=== PATIENT | female | born 1950 | race Caucasian/White ===

== ENCOUNTER 2019-03-12 12:57 | Outpatient (CLI) | payer MEDICARE ==
[2019-03-12] MEDS ORDERED: BUSP10TA PO (13:34)
[2019-03-12] MEDS ORDERED: CYCL-259 PO (13:34)
[2019-03-12] MEDS ORDERED: ROPI1TAB4 PO (13:34)
[2019-03-12] MEDS ORDERED: TRAM50TA2 PO (13:34)
[2019-03-12] MEDS ORDERED: TAMO20TA PO (13:34)
[2019-03-12 13:51] LABS: BASOPHILS # (AUTO) 0.02 x10^3/uL (0-0.1); BASOPHILS % (AUTO) 0 % (0-1); EOSINOPHILS # (AUTO) 0.07 x10^3/uL (0-0.4); EOSINOPHILS % (AUTO) 1 % (1-7); LYMPHOCYTES % (AUTO) 13 % (22-44); MD NO; MEAN CORPUSCULAR HEMOGLOBIN 29.6 pg (27.0-34.8); MEAN CORPUSCULAR HGB CONC 32.6 g/dL (32.4-35.8); MEAN CORPUSCULAR VOLUME 90.6 fL (80-100); MEAN PLATELET VOLUME 7.8 fL (7.4-10.4); MONOCYTES # (AUTO) 0.16 x10^3/uL (0.2-0.8); MONOCYTES % (AUTO) 3 % (2-9); NEUTROPHILS # (AUTO) 4.46 x10^3/uL (1.8-6.8); NEUTROPHILS % (AUTO) 83 % (42-75); PLATELET COUNT 219 x10^3/uL (130-400); RED BLOOD COUNT 5.08 x10^6/uL (3.82-5.3); RED CELL DISTRIBUTION WIDTH 15.3 % (9.6-15.2)
[2019-03-12 13:58] LABS: INTERNATIONAL NORMALIZED RATIO 1.05 (0.93-1.1); PROTHROMBIN TIME 11.1 Seconds (9.6-11.5)
[2019-03-12 14:00] LABS: ANION GAP 6 mmol/L (5-15); CALCIUM 9.7 mg/dL (8.5-10.1); CHLORIDE 105 mmol/L (98-107); CREATININE 0.74 mg/dL (0.55-1.02)
[2019-03-12] MEDS ORDERED: OMEP40CA42 PO (14:07)
[2019-03-12] MEDS ORDERED: BUSP7.5T3 PO (14:07)
[2019-03-12] MEDS ORDERED: VENL75TA2 PO (14:07)
[2019-03-12] MEDS ORDERED: IBUP-1221 PO (14:07)
[2019-03-12] MEDS ORDERED: HYDR-3245 PO (14:07)
[2019-03-12] MEDS ORDERED: LOVA20TA2 PO (14:07)
[2019-03-12] MEDS ORDERED: GUAI400T80 PO (14:07)
[2019-03-12] MEDS ORDERED: [UNRECOGNIZED DRUG - CODE] PO (14:07)
== END 2019-03-12 23:59 | disposition home or self-care (01) ==
LOC: STAR 12:57
PROVIDERS: ATTEND Orthopaedic Surgery
DX: Z01.818 Encounter for other preprocedural examination (principal); M17.11 Unilateral primary osteoarthritis, right knee
CPT/HCPCS: 36415; 80048; 83036; 85025; 85610; 85730; 87081; 87147; 93005

== ENCOUNTER 2019-03-20 08:26 | Observation (INO) | payer MEDICARE ==
[~2019-03-20] VITALS: Ht 165.1 cm; Wt 98.7 kg
[~2019-03-20 08:26] MED LIST: ACETAMINOPHEN 650 MG/20.3 ML UDC PO PRN; BISACODYL 10 MG SUPP PR PRN; BUSP10TA PO; BUSP7.5T3 PO; CYCL-259 PO; DIPHENHYDRAMINE 25 MG CAPSULE PO PRN; EPINEPHRINE 1 MG/ML, 1ML ONE; GUAI400T80 PO; GUAIFENESIN 200 MG TABLET PO PRN; HYDR-3245 PO; HYDROcodone/APAP 5/325 TABLET PO PRN; HYDROmorphone 1 MG/ML, 1ML INJ IV PRN; IBUP-1221 PO; KETOROLAC 60 MG/2 ML ONE; LOVA20TA2 PO; MAGNESIUM HYDROXIDE 8%, 30ML UDC PO PRN; OMEP40CA42 PO; ONDANSETRON 2MG/ML, 2ML IV PRN; ONDANSETRON 4 MG TABLET PO PRN; ROPI1TAB2 PO; ROPIvacaine/PF 0.5%, 20 ML ONE; ROPIvacaine/PF 0.5%, 30 ML ONE; SCOPOLAMINE PATCH, 1.5MG PATCH.TD72 TD ONE; SENNA/DOCUSATE TABLET PO PRN; SODIUM CHLORIDE 0.9% 50 ML ONE; TAMO20TA PO; TRAM50TA2 PO; TRANEXAMIC ACID 100 MG/ML, 10ML ONE; VANCOMYCIN 1,000 MG ONE; VENL75TA2 PO; ZOLPIDEM 5MG TABLET PO PRN; [UNRECOGNIZED DRUG - CODE] PO
[2019-03-20] MEDS ORDERED: MIDAZOLAM 1 MG/ML, 2ML ONE (08:44)
[2019-03-20] MEDS ORDERED: FENTANYL PF 250 MCG/5ML ONE ×2 (08:45→10:22)
[2019-03-20] MEDS ORDERED: ROCURONIUM 10MG/ML,5ML ONE (08:49)
[2019-03-20] MEDS ORDERED: CEFAZOLIN 1,000 MG ONE (08:49)
[2019-03-20] MEDS ORDERED: DEXAMETHASONE 4 MG/ML, 1ML ONE (08:49)
[2019-03-20] MEDS ORDERED: ONDANSETRON 2MG/ML, 2ML ONE (08:49)
[2019-03-20] MEDS ORDERED: NEOSTIGMINE 1 MG/ML, 10ML ONE (08:49)
[2019-03-20] MEDS ORDERED: GLYCOPYRROLATE 0.2MG/1ML, 5ML ONE (08:49)
[2019-03-20] MEDS ORDERED: ROPIvacaine/PF 0.2%, 20 ML ONE (08:49)
[2019-03-20] MEDS ORDERED: PROPOFOL 10 MG/ML, 20ML ONE (08:49)
[2019-03-20 08:58] VITALS: BP 137/91
[2019-03-20] MEDS ORDERED: LACTATED RINGERS 1,000 ML IV SCH (09:07)
[2019-03-20] MEDS ORDERED: ACETAMINOPHEN 500 MG TABLET PO ONE (09:30)
[2019-03-20] MEDS ORDERED: ACETAMINOPHEN 500 MG TABLET ONE (09:43)
[2019-03-20] MEDS ORDERED: MORPHINE SULFATE 4 MG/ML, 1ML IVPush PRN (10:30)
[2019-03-20] MEDS ORDERED: HYDROmorphone 2 MG/ML, 1ML IVPush PRN (10:30)
[2019-03-20] MEDS ORDERED: hydrALAzine 20 MG/ML, 1ML IV PRN (10:30)
[2019-03-20] MEDS ORDERED: MEPERIDINE/PF 25MG/ML,1ML IVPush PRN (10:30)
[2019-03-20] MEDS ORDERED: LABETALOL 5MG/ML, 20ML IV PRN (10:30)
[2019-03-20] MEDS ORDERED: OXYcodone 5 MG/5 ML ORAL.SOL UDC PO PRN (10:30)
[2019-03-20] MEDS ORDERED: PROMETHAZINE 25 MG/ML, 1ML IV PRN (10:30)
[2019-03-20] MEDS ORDERED: HALOPERIDOL 5 MG/ML IV PRN (10:30)
[2019-03-20] MEDS ORDERED: FENTANYL PF 100 MCG/2ML ONE (11:23)
[2019-03-20] MEDS ORDERED: OXYcodone 5 MG/5 ML ORAL.SOL UDC ONE (11:24)
[2019-03-20] MEDS: FENTANYL PF 100 MCG/2ML IV PRN ×2 (11:24→11:34)
[2019-03-20] MEDS: OMEPRAZOLE 20 MG CAPSULE.DR PO SCH (13:32)
[2019-03-20] MEDS: NS + 20MEQ KCL 1,000 ML IV SCH ×2 (13:32→23:55)
[2019-03-20] MEDS: BUSPIRONE 5 MG TABLET PO SCH ×2 (13:32→20:54)
[2019-03-20] MEDS: DOCUSATE 100 MG CAPSULE PO SCH ×2 (13:33→20:54)
[2019-03-20] MEDS: ROPINIROLE 1MG TABLET PO SCH ×2 (13:34→20:54)
[2019-03-20] MEDS: CYCLOBENZAPRINE 10 MG TABLET PO SCH ×3 (13:34→23:50)
[2019-03-20 14:00] VITALS: BP 121/66
[2019-03-20] MEDS: CEFAZOLIN PMX 2GM/50ML 50 ML IVPB SCH (17:48)
[2019-03-20] MEDS: ASPIRIN 81 MG TABLET EC PO SCH (17:48)
[2019-03-20 20:16] VITALS: BP 87/53
[2019-03-20] MEDS: OXYcodone IR 5MG TABLET PO PRN (20:54)
[2019-03-20] MEDS ORDERED: VENLAFAXINE 75 MG CAP ER PO SCH (21:00)
[2019-03-20] MEDS ORDERED: LOVASTATIN 20 MG TABLET PO SCH (21:00)
[2019-03-20 22:53] VITALS: BP 94/55
[2019-03-21 00:31] VITALS: BP 95/76
[2019-03-21] MEDS: CEFAZOLIN PMX 2GM/50ML 50 ML IVPB SCH (01:58)
[2019-03-21 04:01] VITALS: BP 114/64
[2019-03-21] MEDS: ASPIRIN 81 MG TABLET EC PO SCH (05:59)
[2019-03-21] MEDS ORDERED: DEXAMETHASONE 4 MG/ML, 1ML IVPush SCH (06:00)
[2019-03-21] MEDS: OXYcodone IR 5MG TABLET PO PRN ×2 (06:04→10:22)
[2019-03-21 07:02] VITALS: BP 107/74
[2019-03-21] MEDS: ROPINIROLE 1MG TABLET PO SCH (08:40)
[2019-03-21] MEDS: DOCUSATE 100 MG CAPSULE PO SCH (08:40)
[2019-03-21] MEDS: CYCLOBENZAPRINE 10 MG TABLET PO SCH (08:40)
[2019-03-21] MEDS: BUSPIRONE 5 MG TABLET PO SCH (08:40)
[2019-03-21] MEDS: OMEPRAZOLE 20 MG CAPSULE.DR PO SCH (08:41)
[2019-03-21] MEDS ORDERED: OXYC5CAP2 PO (08:56)
[2019-03-21] MEDS ORDERED: TRAM50TA2 PO (08:57)
[2019-03-21] MEDS ORDERED: MELO7.5T31 PO (08:57)
[2019-03-21] MEDS ORDERED: ASPI81TA45 PO (09:02)
== END 2019-03-21 13:31 | disposition home or self-care (01) ==
LOC: OUT 08:26 → 3WST 12:23 → 4NE 03-21 00:01 → OUT 03-21 00:23 → 4NE 03-21 00:24 → DCLOUNGE 03-21 13:19
PROVIDERS: ADMIT Orthopaedic Surgery; ATTEND Orthopaedic Surgery
DX: M17.11 Unilateral primary osteoarthritis, right knee (principal); I25.10 Atherosclerotic heart disease of native coronary artery without angina pectoris; I25.2 Old myocardial infarction; E78.5 Hyperlipidemia, unspecified; G47.30 Sleep apnea, unspecified; Z87.891 Personal history of nicotine dependence
CPT/HCPCS: 27447; 36415; 85014; 85018; 96365; 96366; 96375; 97161; 97166; C1713; C1776; G0378; J0171; J0690; J1100; J1885; J2250; J2405; J2704; J2710; J2795; J3010; J3370; J3480; J7120